=== PATIENT | female | born 1990 | race African-American/Black ===

== ENCOUNTER → 2016-04-15 | Emergency (ER) | payer OTHER ==
[~2016-04-15] MED LIST: KETOROLAC TROMETHAMINE 30 MG/1 ML VIAL IVPUSH ONE; KETOROLAC TROMETHAMINE 30 MG/1 ML VIAL ONE; PANTOPRAZOLE SODIUM 100 ML IVPB ONE; PANTOPRAZOLE SODIUM 40 MG in SODIUM CHLORIDE 100 ML IVPB ONE; SODIUM CHLORIDE 1,000 ML IV STA
[2016-04-15 14:46] VITALS: BP 118/62; PULSE 93; TEMP 98.3; BMI 26.5
--- NOTE | 2016-04-15 15:43 | PDOC ---
History of Present Illness - General Chief Complaint: Pain Stated Complaint: ABD PAIN Time Seen by Provider: 04/15/16 15:00 History Source: Patient Exam Limitations: No Limitations - History of Present Illness Travel History: No Initial Comments: 04/15/16 16:00 25-year-old female presents to the ED with complaints of epigastric burning worsened when laying down and after meals for the past 2 weeks. Patient states was seen by her PCP who prescribed her Pepcid and Zofran which she states has not alleviated her discomfort. Patient now states for the past week has been constipated took [id number] Ex-Lax a few days ago with no results are decided come to the ER today. Patient denies abdominal distention, dysuria, diarrhea, irregular menses, history of constipation, GI disorders. Patient also denies recent change in diet, recent change in activity, fever or chills. Timing/Duration: reports: constant Quality: reports: moderate, cramping, fullness Abdominal Pain Onset Location: reports: epigastric Pain Radiation: reports: no radiation Activities at Onset: reports: none Aggravating Factors: improves with: None, Eating Alleviating Factors: improves with: None Past History - Past Medical History Allergies/Adverse Reactions: Allergies Allergy/AdvReac Type Severity Reaction Status Date / Time No Known Allergies Allergy Verified 04/15/16 14:42 Home Medications: Ambulatory Orders Famotidine 20 mg PO BID 04/15/16 Metronidazole [Flagyl -] 500 mg PO DAILY 04/15/16 Ondansetron HCl [Zofran] 4 mg PO BID 04/15/16 Other medical history: DENIES - Reproductive History LMP Normal: Yes Is Patient Now?: No - Immunization History Immunization Up to Date: Yes - Psycho/Social/Smoking Cessation Hx Suicidal Ideation: No Smoking History: Never smoked Have you smoked in the past 12 months: No Information on smoking cessation initiated: No Hx Alcohol Use: No Drug/Substance Use Hx: No Substance Use Type: None Patient Lives Alone: No Lives with/in: parents Review of Systems - Review of Systems Able to Perform ROS?: Yes Constitutional: No: Symptoms Reported HEENTM: No: Symptoms Reported Respiratory: No: Symptoms reported Cardiac (ROS): No: Symptoms Reported ABD/GI: Yes: Constipated, Nausea, Vomiting, Indigestion : No: Symptoms Reported Musculoskeletal: No: Symptoms Reported Integumentary: No: Symptoms Reported Neurological: No: Symptoms reported Endocrine: No: Symptoms Reported Hematologic/Lymphatic: No: Symptoms Reported *Physical Exam - Vital Signs Last Vital Signs Temp Pulse Resp BP Pulse Ox 98.3 F 93 H 16 118/62 100 04/15/16 14:43 04/15/16 14:43 04/15/16 14:43 04/15/16 14:43 04/15/16 14:43 - Physical Exam General Appearance: Yes: Nourished, Appropriately Dressed. No: Apparent Distress HEENT: positive: EOMI. negative: Pale Conjunctivae Neck: positive: Supple Respiratory/Chest: positive: Lungs Clear, Normal Breath Sounds. negative: Respiratory Distress, Accessory Muscle Use Cardiovascular: positive: Regular Rhythm, Regular Rate. negative: Murmur Gastrointestinal/Abdominal: positive: Normal Bowel Sounds, Soft, Distended, Tenderness (epigastric, no RUQ tenderness) Musculoskeletal: negative: CVA Tenderness Extremity: positive: Normal Capillary Refill. negative: Pedal Edema Integumentary: positive: Normal Color, Warm, Moist Neurologic: positive: Motor Strength 5/5 (ambulatory) ED Treatment Course - LABORATORY CBC & Chemistry Diagram: 04/15/16 16:10 04/15/16 16:10 Medical Decision Making - Medical Decision Making 04/15/16 16:04 Pt with epigastric pain for the past 2 weeks now associated with constipation. Patient examined have epigastric tenderness without any rebound or guarding. Patient had normal bowel sounds with no distention. Patient ordered for CBC, comp, lipase, Protonix, Toradol, IV fluids, KUB with ua, urine . 04/15/16 17:39 Laboratory Tests 04/15/16 04/15/16 04/15/16 15:34 16:10 16:10 WBC 9.3 Hgb 13.4 Hct 40.0 Neutrophils % 68.8 Sodium 140 Potassium 4.0 Chloride 105 Carbon Dioxide 25 Anion Gap 10 BUN 11 Creatinine 0.8 Random Glucose 75 AST 9 L ALT 13 Lipase 107 Urine Ketones 1+ H Urine Nitrite Negative Urine HCG, Qual Negative Abdominal x-ray shows retained stool compatible with constipation in the left colon and rectosigmoid. Patient will be given a prescription for MiraLAX and told to continue the medication previously prescribed her PCP. Patient states feeling much better. *DC/Admit/Observation/Transfer Diagnosis at time of Disposition: Constipation Qualifiers: Constipation type: unspecified constipation type Qualified Code(s): K59.00 - Constipation, unspecified Gastroesophageal reflux disease Qualifiers: Esophagitis presence: without esophagitis Qualified Code(s): K21.9 - Gastro- esophageal reflux disease without esophagitis - Discharge Dispostion Disposition: HOME Condition at time of disposition: Good - Referrals Referrals: STAFF,NOT ON [Primary Care Provider] - - Patient Instructions Printed Discharge Instructions: DI for Constipation, Increased Dietary Fiber May Improve Constipation Conditions With Pelvic Robert, DI for Gastroesophageal Reflux Disease (GERD) Additional Instructions: Take MiraLAX as prescribed mixed in 8 ounces of water and if no bowel movement in 2 hours repeat the dose. Increase your exercise and drink plenty of fluids. Add fiber to diet.
[2016-04-15 16:18] LABS: BASOPHIL 0.5 % (0-2.0); EOSINOPHIL 0.4 % (0-4.5); MCH 29.5 pg (25.7-33.7); MCHC 33.5 g/dl (32.0-36.0); MEAN CELL VOLUME 88.1 fl (80-96); NEUTROPHILS 68.8 % (42.8-82.8); PLATELET COUNT 222 K/MM3 (134-434); RDW 12.1 % (11.6-15.6); WHITE BLOOD COUNT 9.3 K/mm3 (4.0-10.0)
[2016-04-15 16:26] LABS: URINE APPEARANCE CLEAR; URINE BILIRUBIN NEGATIVE (NEGATIVE); URINE BLOOD NEGATIVE (NEGATIVE); URINE COLOR YELLOW; URINE GLUCOSE (UA) NEGATIVE (NEGATIVE); URINE KETONE 1+ (NEGATIVE); URINE LEUK ESTERASE NEGATIVE (NEGATIVE); URINE NITRITE NEGATIVE (NEGATIVE); URINE PROTEIN NEGATIVE (NEGATIVE); URINE UROBILINOGEN NEGATIVE E.U./dl (0.2-1.0)
[2016-04-15 16:46] LABS: ALBUMIN 4.3 g/dl (3.4-5.0); ANION GAP 10 (8-16); BILIRUBIN,TOTAL 0.5 mg/dL (0.2-1.0); CALCIUM 9.5 mg/dL (8.5-10.1); CO2 25 mmol/L (21-32); CREATININE 0.8 mg/dL (0.55-1.02); GLUCOSE,RANDOM 75 mg/dL (74-106); SGOT/AST 9 U/L (15-37); SGPT/ALT 13 U/L (12-78); TOT PROT 7.8 g/dl (6.4-8.2)
[2016-04-15 16:47] LABS: ALK PHOS 55 U/L (45-117)
--- NOTE | 2016-04-16 11:55 | PDOC ---
*Physical Exam - Vital Signs Last Vital Signs Temp Pulse Resp BP Pulse Ox 98.3 F 93 H 16 118/62 100 04/15/16 14:43 04/15/16 14:43 04/15/16 14:43 04/15/16 14:43 04/15/16 14:43 - Physical Exam Comments: 04/16/16 11:55 MIDLEVEL NOTE Pt seen by Midlevel Provider under my direct supervision. Pt interviewed and examined. Ancillary studies reviewed. I agree with plan as outlined by Midlevel Provider. Laboratory Results - last 24 hr 04/15/16 04/15/16 04/15/16 15:34 16:10 16:10 WBC 9.3 RBC 4.54 Hgb 13.4 Hct 40.0 MCV 88.1 MCHC 33.5 RDW 12.1 Plt Count 222 MPV 8.0 Neutrophils % 68.8 Lymphocytes % 24.8 Monocytes % 5.5 Eosinophils % 0.4 Basophils % 0.5 Sodium 140 Potassium 4.0 Chloride 105 Carbon Dioxide 25 Anion Gap 10 BUN 11 Creatinine 0.8 Creat Clearance w eGFR > 60 Random Glucose 75 Calcium 9.5 Total Bilirubin 0.5 AST 9 L ALT 13 Alkaline Phosphatase 55 Total Protein 7.8 Albumin 4.3 Lipase 107 Urine Color Yellow Urine Appearance Clear Urine pH 5.0 Ur Specific Mullan 1.029 Urine Protein Negative Urine Glucose (UA) Negative Urine Ketones 1+ H Urine Blood Negative Urine Nitrite Negative Urine Bilirubin Negative Urine Urobilinogen Negative Ur Leukocyte Esterase Negative Urine HCG, Qual Negative Abdominal x-rays Retained stool compatible with constipation IUD is noted in the pelvis ED Treatment Course - LABORATORY CBC & Chemistry Diagram: 04/15/16 16:10 04/15/16 16:10 - ADDITIONAL ORDERS Additional order review: 04/15/16 16:10 RBC 4.54 MCV 88.1 MCHC 33.5 RDW 12.1 MPV 8.0 Neutrophils % 68.8 Lymphocytes % 24.8 Monocytes % 5.5 Eosinophils % 0.4 Basophils % 0.5 - Medications Given in the ED: ED Medications Discontinued Medications Generic Name Dose Route Start Last Admin Trade Name Freq PRN Reason Stop Dose Admin Pantoprazole Sodium 40 mg/ 100 mls @ 200 mls/hr 04/15/16 15:44 04/15/16 16:13 Sodium Chloride IVPB 04/15/16 16:13 200 mls/hr ONCE ONE Administration Sodium Chloride 1,000 mls @ 1,000 mls/hr 04/15/16 16:00 04/15/16 16:14 Normal Saline - IV 04/15/16 16:59 1,000 mls/hr ASDIR STA Administration Ketorolac Tromethamine 30 mg 04/15/16 15:44 04/15/16 16:13 Toradol Injection - IVPUSH 04/15/16 15:45 30 mg ONCE ONE Administration *DC/Admit/Observation/Transfer Diagnosis at time of Disposition: Constipation Qualifiers: Constipation type: unspecified constipation type Qualified Code(s): K59.00 - Constipation, unspecified GERD (gastroesophageal reflux disease) Qualifiers: Esophagitis presence: without esophagitis Qualified Code(s): K21.9 - Gastro- esophageal reflux disease without esophagitis - Discharge Dispostion Disposition: HOME Condition at time of disposition: Good - Prescriptions Prescriptions: Polyethylene Glycol 3350 [Miralax (For Bowel Prep) -] 17 gm PO ONCE #1 bottle - Referrals Referrals: STAFF,NOT ON [Primary Care Provider] - - Patient Instructions Printed Discharge Instructions: DI for Gastroesophageal Reflux Disease (GERD), Increased Dietary Fiber May Improve Constipation Conditions With Pelvic Robert, DI for Constipation Additional Instructions: Take MiraLAX as prescribed mixed in 8 ounces of water and if no bowel movement in 2 hours repeat the dose. Increase your exercise and drink plenty of fluids. Add fiber to diet. - Post Discharge Activity
== END | disposition home or self-care (01) ==
LOC: JER 14:28
PROC: 3E0333Z Introduction of Anti-inflammatory into Peripheral Vein, Percutaneous Approach (ICD-10-PCS; principal; 2016-04-15)
PROC: 3E033GC Introduction of Other Therapeutic Substance into Peripheral Vein, Percutaneous Approach (ICD-10-PCS; 2016-04-15)
PROC: 3E0337Z Introduction of Electrolytic and Water Balance Substance into Peripheral Vein, Percutaneous Approach (ICD-10-PCS; 2016-04-15)
DX: K59.00 Constipation, unspecified (principal); K21.9 Gastro-esophageal reflux disease without esophagitis
CPT/HCPCS: 36415; 74000-TC; 80053; 81003; 83690; 84703; 85025; 96361; 96365; 96375; 99284-25